=== PATIENT | male | born 1945 | race Caucasian/White ===

== ENCOUNTER 2016-10-22 12:54 | Emergency (ER) | payer MEDICARE, OTHER ==
[2016-10-22 13:15] VITALS: BP 132/81
--- NOTE | 2016-10-22 13:34 | EDM.PDOC ---
ED HPI GENERAL MEDICAL PROBLEM - General Chief Complaint: General Stated Complaint: TICK BITE Time Seen by Provider: 10/22/16 13:18 Source of Information: Reports: Patient History Limitations: Reports: No Limitations - History of Present Illness INITIAL COMMENTS - FREE TEXT/NARRATIVE: 71 yo presents to ER post tick bite to left upper arm. removed tick this AM believe it has attached within the last 12 hours. pt reports that tick was a deer tick. denies fever, headache, or general ill feeling Left Arm Pain Score (Numeric/FACES): 2 - Related Data Allergies Allergy/AdvReac Type Severity Reaction Status Date / Time No Known Allergies Allergy Verified 10/22/16 13:20 Home Meds: Home Meds NK [No Known Home Meds] 10/22/16 [History] Past Medical History HEENT History: Reports: Impaired Vision Musculoskeletal History: Reports: Fracture Neurological History: Reports: Head Trauma Oncologic (Cancer) History: Reports: Prostate - Infectious Disease History Infectious Disease History: Reports: Chicken Pox, Influenza, Measles, Mumps - Past Surgical History Male Surgical History: Reports: Prostate Biopsy Social & Family History - Tobacco Use Smoking Status *Q: Never Smoker - Caffeine Use Caffeine Use: Reports: Coffee - Alcohol Use Days Per Week of Alcohol Use: 5 Number of Drinks Per Day: 2 Total Drinks Per Week: 10 - Recreational Drug Use Recreational Drug Use: No ED ROS GENERAL - Review of Systems Review Of Systems: See Below Constitutional: Denies: Fever, Chills Respiratory: Denies: Shortness of Breath, Wheezing Cardiovascular: Denies: Chest Pain ED EXAM, GENERAL - Physical Exam Exam: See Below Exam Limited By: No Limitations General Appearance: Alert, WD/WN, No Apparent Distress Respiratory/Chest: No Respiratory Distress, Lungs Clear, Normal Breath Sounds. No: Crackles, Rhonchi, Wheezing Cardiovascular: Regular Rate, Rhythm Skin Exam: Warm, Dry, Intact, Rash (1 cm target lesion left anterior upper arm) Course - Vital Signs Last Recorded V/S: Last Vital Signs Temp 36.4 C 10/22/16 13:22 Pulse 54 L 10/22/16 13:22 Resp 14 10/22/16 13:22 BP 132/81 10/22/16 13:22 Pulse Ox 99 10/22/16 13:22 Departure - Departure Time of Disposition: 13:32 Disposition: Home, Self-Care 01 Condition: Good Clinical Impression: Tick bite of upper arm Qualifiers: Encounter type: initial encounter Laterality: left Qualified Code(s): S40.862A - Insect bite (nonvenomous) of left upper arm, initial encounter - Discharge Information Instructions: Lyme Disease Referrals: PCP,None [Primary Care Provider] - Forms: ED Department Discharge Additional Instructions: one time dose of Doxycycline 200 mg wash bite area with warm soapy water follow-up with primary care provider if you develop fever, chills, headache or body ache in the next 2 weeks
== END 2016-10-22 13:39 | disposition home or self-care (01) ==
LOC: JP.ED 12:54
DX: S40.862A Insect bite (nonvenomous) of left upper arm, initial encounter (principal); H54.7 Unspecified visual loss; W57.XXXA Bitten or stung by nonvenomous insect and other nonvenomous arthropods, initial encounter
CPT/HCPCS: 99283